=== PATIENT | female | born 1980 | race Asian ===

== ENCOUNTER 2024-01-09 19:42 | Emergency (ER) | payer MEDICAID, SELFPAY ==
[2024-01-09 19:42] VITALS: BMI 38.3
[2024-01-09 19:49] VITALS: BP 133/94
[2024-01-09 20:18] LABS: % Basophils 0.8 % (0-2); % Eosinophils 2.9 % (0-6); % Immature Granulocytes 0.3 % (0-0.5); % Monocytes 7.5 % (1.7-9.3); % Neutrophils 42.5 % (42.2-75.2); Absolute Basophils 0.1 10^3/uL (0-0.2); Absolute Eosinophils 0.2 10^3/uL (0-0.7); Absolute Lymphocytes 3.4 10^3/uL (1.2-3.4); Absolute Monocytes 0.6 10^3/uL (0.1-0.6); Absolute Neutrophils 3.1 10^3/uL (1.4-6.5); Hemoglobin 13.4 g/dL (12.0-16.0); Mean Corp Hgb Conc. 31.9 g/dL (33.0-37.0); Mean Corpuscular Hgb 26.5 pg (27.0-31.0); Mean Platelet Volume 11.8 fL (7.4-10.4); Nucleated Red Blood Cells % 0 %; Platelet Count 226 10^3/uL (130-400); Red Blood Cell Count 5.06 10^6/uL (4.20-5.40); Red Cell Dist. Width 13.5 % (11.5-14.5); White Blood Cell Count 7.3 10^3/uL (4.8-10.8)
[2024-01-09 20:32] LABS: ALT (SGPT) 66 U/L (0-35); AST (SGOT) 44 U/L (14-36); Albumin 4.3 g/dl (3.5-5.0); Alkaline Phosphatase 59 U/L (38-126); Blood Urea Nitrogen 10 mg/dl (7-17); Calcium 9.5 mg/dl (8.4-10.2); Carbon Dioxide 25 mmol/L (22-30); Chloride 103 mmol/L (98-107); Glucose 90 mg/dl (70-99); Potassium 4.1 mmol/L (3.5-5.1); Sodium 141 mmol/L (135-145); Total Bilirubin 0.4 mg/dl (0.2-1.3); Total Protein 7.1 g/dl (6.3-8.2); eGFR > 60.00
[2024-01-09 20:35] LABS: HCG, Serum Qualitative Screen Negative
[2024-01-09 20:54] LABS: Troponin I < 0.012 ng/ml
[2024-01-09 21:54] VITALS: BP 124/96
--- NOTE | 2024-01-09 22:20 | ED.GENMED ---
History of Present Illness
General
Chief Complaint: Blood Pressure Problem
Source: patient
Time Seen by Provider: 01/09/24 22:13
History of Present Illness
History of Present Illness:
43-year-old female with no significant past medical history presenting to the emergency department for evaluation of intermittently elevated blood pressures at home noting she has had intermittent symptoms of headache, chest discomfort, flank pain,
body aches, fatigue and left arm pain. Patient states presently she is asymptomatic. She did not take anything for her blood pressure. She notes that she does have a primary care provider but has yet to see them for this issue. Denies any fevers
or infectious symptoms. Denies any cigarette or tobacco history. No other concerns presently.
Past History
Past History
ED Past Medical History: None
ED Past Surgical History: Cholecystectomy and
Social History
Tobacco: Non-smoker
Alcohol: None
Drug: None
Personal:
Living: with family
Review of Systems
Review of Systems
All Other Systems: ROS reviewed and negative except as documented in HPI and ROS
Phy Exam
Physical Exam
Physical Exam:
GENERAL: Alert , in no apparent distress
EYE: clear conjunctiva b/l
HEAD: NCAT
ENT: mmm.
CARDIAC: Regular rate and rhythm .
LUNGS: Clear breath sounds bilaterally, no acute respiratory distress, no wheezes/rales/rhonchi
ABDOMEN: Soft, without focal tenderness, no r/g, no cvat
NEUROLOGICAL: Alert and oriented
SKIN: Warm and dry, skin intact.
MUSCULOSKELETAL: No edema, well perfused.
PSYCH: Normal and appropriate interaction.
Scores
Heart Failure Risk
Heart Failure Risk Score: Not Applicable
Heart Score for Chest Pain Patients
STEMI patient?: Not applicable
Withdrawal Assessment of Alcohol
Withdrawal Assessment Completed?: Not applicable
Course
Orders/Labs/Results
Orders:
Orders
01/09/24 19:52
Electrocardiogram (*1) Urgent
Reason for Study: Chest Pain
EKG- Treatment ONCE
Test Result ONCE
01/09/24 20:04
Complete Blood Count/With Diff Urgent
Comprehensive Metabolic Panel Urgent
HCG, Serum Qualitative Screen Urgent
Troponin I Urgent
Abnormal Lab Results
01/09/24
20:04
MCH 26.5 L pg
(27.0-31.0)
MCHC 31.9 L g/dL
(33.0-37.0)
MPV 11.8 H fL
(7.4-10.4)
AST 44 H U/L
(14-36)
ALT 66 H U/L
(0-35)
01/09/24 20:04
01/09/24 20:04
Vital Signs
Initial and Last Documented VS:
Initial Vital Signs
Temp Pulse Resp BP Pulse Ox
98.2 F 85 18 133/94 99
01/09/24 19:49 01/09/24 19:49 01/09/24 19:49 01/09/24 19:49 01/09/24 19:49
Last Documented Vital Signs
Temp Pulse Resp BP Pulse Ox
98.2 F 85 18 124/96 99
01/09/24 19:49 01/09/24 19:49 01/09/24 19:49 01/09/24 21:54 01/09/24 22:10
MDM/Problems Addressed
Differential Diagnosis Includes:
Asymptomatic hypertension, hypertensive urgency, I do not have concern for any intracranial pathology or ACS
MDM/Problems Addressed:
43-year-old female presenting to the emergency department for evaluation of intermittent elevated blood pressures at home. On arrival to the emergency department here patient did have a slightly elevated systolic but on multiple recheck her blood
pressure is significantly improved around 120/80. Patient is asymptomatic presently. Labs are largely unremarkable other than mildly elevated liver function tests. Patient has a nonischemic EKG. Discussed monitoring blood pressure at home as
well as some dietary modifications. Patient will follow-up with her primary care provider in 1 to 2 weeks to have her blood pressure rechecked. Aware of return precautions to the ER.
*Pulse Oximetry
Patient hypoxic: no
*EKG
Heart Rate: 78
Rate: normal
Rhythm: sinus
[place]: normal axis
Ischemia: no ischemia
*Operator/Assistant Foreman Interpretation
Rate: normal
Rhythm: sinus
*Critical Care Note
Total Time (30-74mins, 75-104mins- exclusive of procedures): Not Applicable
ED Attending Note
-
Portions of this chart may have been created with voice recognition software.� Occasional wrong word or��sound alike� substitutions may have occurred due to the inherent limitations of voice recognition software.
Discharge Plan
Departure
Patient Disposition: Home (Routine Discharge)
Date of Disposition: 01/09/24
Time of Disposition: 22:20
Patient with high blood pressure during this ER visit?: No
Discharge Problem:
Elevated blood pressure reading
Instructions: High Blood Pressure (DC)
Interventions
Interventions:
*Risk Screen - Suicide Last Done: 01/09/24 19:49
*General Assessment Last Done: 01/09/24 19:49
*Neglect/Abuse Screening Last Done: 01/09/24 19:49
ED- Fall Risk Assessment Last Done: 01/09/24 22:12
*ED COVID-19 Vaccine History Last Done: 01/09/24 22:10
ED- Cardiac Assessment Last Done: 01/09/24 22:10
ED- Neurological Assessment Last Done: 01/09/24 22:10
ED- Pulmonary Assessment Last Done: 01/09/24 22:10
Discharge Date and Time
Print Language: URDU
== END 2024-01-09 22:58 | disposition home or self-care (01) ==
LOC: EMR 19:42
PROVIDERS: Student in an Organized Health Care Education/Training Program; EMERGENCY PHYSICIAN Student in an Organized Health Care Education/Training Program
DX: R03.0 Elevated blood-pressure reading, without diagnosis of hypertension (principal); Z90.49 Acquired absence of other specified parts of digestive tract
CPT/HCPCS: 99284; 80053; 84484; 84703; 85025; 93005

== ENCOUNTER 2024-05-07 11:16 | Emergency (ER) | payer MEDICAID, SELFPAY ==
[2024-05-07 11:27] VITALS: BP 133/95
[2024-05-07 12:11] LABS: COVID-19 Antigen Negative (Negative)
--- NOTE | 2024-05-07 12:14 | ED.GENMED ---
History of Present Illness
General
Chief Complaint: Cold/Flu/URI Symptoms
Time Seen by Provider: 05/07/24 11:59
History of Present Illness
History of Present Illness:
TIME OF INITIAL ENCOUNTER: 11:45 AM
HPI: The patient presents with 2 days of cough and congestion.Her son has similar symptoms and is found to be influenza positive. Her son continues to have fever. This patient has some chest discomfort associated with cough.
EXAM:
GENERAL: Well appearing in no distress
HEENT: Moist oral mucosa
CARDIOVASCULAR: No murmurs, borderline tachycardic heart rate, regular rhythm, No chest wall tenderness
PULMONARY: No respiratory distress, breath sounds are clear and equal
ABDOMEN: Soft with no peritoneal signs, no tenderness
NEUROLOGIC: Excellent strength all extremities, no coordination deficits
PSYCHIATRIC: Appropriate mental status, normal insight and judgement
EXTREMITIES: Nontender, no edema, moves all extremities equally
SKIN: No rash, no lesions
NUMBER AND COMPLEXITY OF PROBLEMS ADDRESSED AT THE ENCOUNTER
� Chronic conditions affecting care: No significant past medical history
� Acute Exacerbation and/or Progression of Chronic Illness: This is an acute problem
� Differential Diagnosis includes: Viral syndrome, based on physical examination, doubt pneumonia
AMOUNT AND/OR COMPLEXITY OF DATA TO BE REVIEWED AND ANALYZED
� I performed an independent evaluation of and my interpretation is:
EKG:
CT:
X-rays:
Laboratory Studies: COVID and flu testing negative
Other:
� Review of other/old records: The patient was seen here in December related to high blood pressure readings and at that time basic blood work was unremarkable
� Clinical information was obtained by an independent historian: I spoke to at bedside
� Prescriptions/Medications Considered but not given:
� Further testing considered but not performed: Considered x-ray however the patient's lungs are perfectly clear
RISK OF COMPLICATIONS AND/OR MORBIDITY OR MORTALITY OF PATIENT MANAGEMENT
� Social determinants of health affecting care: Lives at home
� Discussion with other providers:
� Escalation of care including admission/observation vs risk of discharge considered: Son has similar symptoms and is found to be flu positive. Despite negative testing, I suspect that this patient has the flu. Although she is
tachycardic, she appears to be well-hydrated. She denies fevers. Will start Tamiflu.
ANY OTHER UPDATES:
Past History
Past History
ED Past Medical History: None
ED Past Surgical History: Cholecystectomy and
Social History
Tobacco: Non-smoker
Alcohol: None
Drug: None
Personal:
Living: with family
Phy Exam
Physical Exam
Physical Exam:
See HPI
Course
Orders/Labs/Results
Orders:
Orders
05/07/24 11:32
COVID-19 Antigen Urgent
Source: Nasal Swab
Influenza A+B Rapid Molecular Urgent
CORDELL Source: Nasal Swab
Specimen Description:
05/07/24 12:07
Ibuprofen [Motrin] 800 mg PO NOW STA
Vital Signs
Initial and Last Documented VS:
Initial Vital Signs
Temp Pulse Resp BP Pulse Ox
37.3 C 123 20 133/95 98
05/07/24 11:27 05/07/24 11:27 05/07/24 11:27 05/07/24 11:27 05/07/24 11:27
Last Documented Vital Signs
Temp Pulse Resp BP Pulse Ox
37.3 C 123 20 133/95 98
05/07/24 11:27 05/07/24 11:27 05/07/24 11:27 05/07/24 11:27 05/07/24 11:27
*Critical Care Note
Total Time (30-74mins, 75-104mins- exclusive of procedures): Not Applicable
ED Attending Note
-
Portions of this chart may have been created with voice recognition software.� Occasional wrong word or��sound alike� substitutions may have occurred due to the inherent limitations of voice recognition software.
Discharge Plan
Departure
Patient Disposition: Home (Routine Discharge)
Date of Disposition: 05/07/24
Time of Disposition: 12:12
Patient with high blood pressure during this ER visit?: Yes
Discharge Problem:
Acute viral syndrome
Instructions: Viral Syndrome (DC), BLOOD PRESSURE
Prescriptions:
New
oseltamivir [Tamiflu] 75 mg capsule
75 mg PO BID Qty: 10 0RF
Activity Restrictions/Additional Instructions:
Your influenza and COVID test came back negative however since your son is positive for influenza, it is still possible you have influenza as well. I did send a prescription for Tamiflu to your pharmacy.
Interventions
Interventions:
*Risk Screen - Suicide Last Done: 05/07/24 11:27
*General Assessment Last Done: 05/07/24 11:27
*Neglect/Abuse Screening Last Done: 05/07/24 11:27
Discharge Date and Time
Print Language: MOHAWK
[2024-05-07] MEDS: MOTRIN 800 MG PO (12:39)
== END 2024-05-07 12:50 | disposition home or self-care (01) ==
LOC: EMR 11:16
PROVIDERS: EMERGENCY PHYSICIAN Emergency Medicine
DX: B34.9 Viral infection, unspecified (principal); R03.0 Elevated blood-pressure reading, without diagnosis of hypertension; Z11.52 Encounter for screening for COVID-19
CPT/HCPCS: 99283; 87502; 87811

== ENCOUNTER 2024-11-10 15:20 | Emergency (ER) | payer MEDICAID, SELFPAY ==
[2024-11-10 15:23] VITALS: BP 140/96
[2024-11-10 16:17] VITALS: BP 129/90
[2024-11-10 16:32] LABS: Hematocrit 44.2 % (37.0-47.0); Hemoglobin 14.2 g/dL (12.0-16.0); Mean Corp Hgb Conc. 32.1 g/dL (33.0-37.0); Mean Corpuscular Volume 81.1 fL (81.0-99.0); Nucleated Red Blood Cells % 0 %; Platelet Count 249 10^3/uL (130-400); Red Cell Dist. Width 13.3 % (11.5-14.5)
--- NOTE | 2024-11-10 16:32 | ED.GENMED ---
History of Present Illness
General
Chief Complaint: Heart Rate Problem
Source: patient
Exam Limitations: none
Time Seen by Provider: 11/10/24 16:06
Nursing documentation reviewed up to this point in time: agreed with
History of Present Illness
History of Present Illness:
Patient is a 44-year-old female presents to the ER for evaluation. Patient minimally takes her blood pressure and on night 3 days ago took her blood pressure and it was elevated. It was around 140s over 90s. She also noticed that she has
had a headache since then. She complains of pain in the back of her head and she is nauseous with this. She also feels fatigued. She does report she is upset because her son went to college and moved to [place] recently and that has been upsetting
her. She does not have a history of headaches. She denies any trauma fever chills. She denies any neck pain dizziness blurry vision. Denies any trauma chiropractor manipulation. She is not on blood thinners. She is brought to the ER by son who
is also assisting with history. Son reports patient's heart rate was elevated in the low 100s prior to arrival as well. Patient denies any chest pain shortness of breath. Denies any recent cough fever chills URI symptoms.
Past History
Past History
ED Past Medical History: None
ED Past Surgical History: Cholecystectomy and
Social History
Tobacco: Non-smoker
Alcohol: None
Drug: None
Personal:
Living: with family
Phy Exam
General Physical Exam
General Presentation: no apparent distress
General age: appears stated age
General Skin: warm and dry
General Habitus: normal
General Mental: alert
General Hydration: appears well hydrated
ENT Exam
ENT Exam: EOMI and TM's normal
Eye Exam
Eye Exam: PERRL and EOMI
Eye Exam General: PERRL: bilateral and EOM intact: bilateral
Pupil Exam: Bilateral: round and reactive
Cardiovascular Exam
Cardiovascular Exam: regular rate/rhythm, no murmur and normal peripheral pulses
Neurological Exam
Neurological Exam: alert and oriented x3
Musculoskeletal Exam
Musculoskeletal Exam: full ROM
Skin Exam
Skin Exam: normal color and warm/dry
Psychiatric Exam
Psychiatric Exam: normal mood/affect
Course
Orders/Labs/Results
Orders:
Orders
11/10/24 15:27
Electrocardiogram (*1) Urgent
Reason for Study: Tachycardia
EKG- Treatment ONCE
11/10/24 15:29
Test Result ONCE
11/10/24 16:15
Complete Blood Count/With Diff Urgent
Comprehensive Metabolic Panel Urgent
HCG, Serum Qualitative Screen Urgent
11/10/24 16:29
CT Head W/o Iv Contrast Urgent
Comment:
Reason For Exam: headache nausea/elevated bp
11/10/24 16:31
Diphenhydramine [Benadryl] 25 mg IV NOW STA
Metoclopramide [Reglan] 10 mg IV NOW STA
11/10/24 16:32
0.9% Sodium Chloride 1000 ml [Nss] 1,000 ml IV BOLUS
11/10/24 19:27
Ketorolac [Toradol] 15 mg IV NOW STA
Abnormal Lab Results
11/10/24
16:15
RBC 5.45 H 10^6/uL
(4.20-5.40)
MCH 26.1 L pg
(27.0-31.0)
MCHC 32.1 L g/dL
(33.0-37.0)
MPV 10.7 H fL
(7.4-10.4)
BUN 6 L mg/dl
(7-17)
Glucose 105 H mg/dl
(70-99)
08/24/25 16:15
11/10/24 16:15
Vital Signs
Initial and Last Documented VS:
Initial Vital Signs
Temp Pulse Resp BP Pulse Ox
98.2 F 105 18 140/96 97
11/10/24 15:23 11/10/24 15:23 11/10/24 15:23 11/10/24 15:23 11/10/24 15:23
Last Documented Vital Signs
Temp Pulse Resp BP Pulse Ox
98.2 F 101 13 148/95 98
11/10/24 15:23 11/10/24 17:58 11/10/24 17:45 11/10/24 19:57 11/10/24 19:58
MDM/Problems Addressed
Differential Diagnosis Includes:
Not limited to headache, hypertension
MDM/Problems Addressed:
Patient is documented 44-year-old female who has had a headache for the past several days. She does not have a history of high blood pressure however trigger blood pressure has also been elevated. She denies any blurred vision chest pain shortness
of breath. Son noticed her heart rate was mildly elevated. She however denies any shortness of breath here in the ER denies any dizziness lightheadedness. She is awake alert no acute distress no recent fever chills no meningismus. No
neurological deficits. Labs unremarkable CAT scan unremarkable. Patient was given fluids Reglan Benadryl Toradol feeling much better. She does not have a PCP will DC with family practice clinic follow-up
*Radiology
Radiology exam reviewed: radiology read reviewed
*Pulse Oximetry
SaO2: 97
Oxygen Mode of Delivery: Room air
Patient hypoxic: no
*EKG
Interpreted by ED Provider?: Yes
Heart Rate: 88
Rate: normal
Rhythm: sinus
Ischemia: no ischemia
*Critical Care Note
Total Time (30-74mins, 75-104mins- exclusive of procedures): Not Applicable
ED Attending Note
-
Portions of this chart may have been created with voice recognition software.� Occasional wrong word or��sound alike� substitutions may have occurred due to the inherent limitations of voice recognition software.
Discharge Plan
Departure
Patient Disposition: Home (Routine Discharge)
Date of Disposition: 11/10/24
Time of Disposition: 20:17
Patient with high blood pressure during this ER visit?: Yes
Condition: Fair
Covid-19: Not Applicable
Discharge Problem:
Headache, elevated blood pressure
Instructions: Headache in adults - ED (DC), BLOOD PRESSURE
Prescriptions:
No Action
oseltamivir [Tamiflu] 75 mg capsule
75 mg PO BID Qty: 10 0RF
Referrals:
[facility] [Provider Group]
[facility] [Outside]
NONE,* [Family Provider, Internal Medicine]
Activity Restrictions/Additional Instructions:
As discussed, follow-up with family practice clinic in the next 2 days .
call tomorrow to make an appointment. You may take Tylenol for headaches. Stay well-hydrated. Return if any worsening of symptoms
Interventions
Interventions:
*Risk Screen - Suicide Last Done: 11/10/24 15:23
*General Assessment Last Done: 11/10/24 15:23
*Neglect/Abuse Screening Last Done: 11/10/24 15:23
*ED- Fall Risk Assessment Last Done: 11/10/24 18:08
*ED COVID-19 Vaccine History Last Done: 11/10/24 18:08
ED- Cardiac Assessment Last Done: 11/10/24 17:11
ED- Pulmonary Assessment Last Done: 11/10/24 17:11
Discharge Date and Time
Print Language: GREEK
[2024-11-10 16:41] LABS: HCG, Serum Qualitative Screen Negative
[2024-11-10 16:48] LABS: ALT (SGPT) 32 U/L (0-35); AST (SGOT) 24 U/L (14-36); Albumin 4.5 g/dl (3.5-5.0); Alkaline Phosphatase 49 U/L (38-126); Blood Urea Nitrogen 6 mg/dl (7-17); Calcium 9.4 mg/dl (8.4-10.2); Carbon Dioxide 26 mmol/L (22-30); Chloride 107 mmol/L (98-107); Glucose 105 mg/dl (70-99); Potassium 4.2 mmol/L (3.5-5.1); Sodium 138 mmol/L (135-145); Total Protein 7.2 g/dl (6.3-8.2); eGFR > 60.00
[2024-11-10] MEDS: REGLAN 10 MG IV (16:58)
[2024-11-10] MEDS: BENADRYL 25 MG IV (16:59)
[2024-11-10] MEDS: NSS 1000 IV (16:59)
[2024-11-10 19:57] VITALS: BP 148/95
[2024-11-10] MEDS: TORADOL 15 MG IV (19:58)
== END 2024-11-10 20:47 | disposition home or self-care (01) ==
LOC: EMR 15:20
PROVIDERS: EMERGENCY PHYSICIAN Emergency Medicine
DX: R03.0 Elevated blood-pressure reading, without diagnosis of hypertension (principal); Z63.8 Other specified problems related to primary support group
CPT/HCPCS: 99284; 96374; 96375 ×2; 96361; 70450; 80053; 84703; 85025; 93005

== ENCOUNTER 2025-01-28 18:32 | Emergency (ER) | payer MEDICAID, SELFPAY ==
[2025-01-28 18:40] VITALS: BP 152/91
[2025-01-28 19:17] VITALS: BP 131/86
[2025-01-28 19:34] LABS: Hematocrit 40.0 % (37.0-47.0); Hemoglobin 13.0 g/dL (12.0-16.0); Mean Corp Hgb Conc. 32.5 g/dL (33.0-37.0); Mean Corpuscular Volume 81.3 fL (81.0-99.0); Nucleated Red Blood Cells % 0 %; Platelet Count 223 10^3/uL (130-400); Red Cell Dist. Width 13.6 % (11.5-14.5)
[2025-01-28 19:57] LABS: ALT (SGPT) 29 U/L (0-35); AST (SGOT) 26 U/L (14-36); Albumin 4.4 g/dl (3.5-5.0); Alkaline Phosphatase 63 U/L (38-126); Blood Urea Nitrogen 10 mg/dl (7-17); Calcium 9.2 mg/dl (8.4-10.2); Carbon Dioxide 29 mmol/L (22-30); Chloride 103 mmol/L (98-107); Glucose 85 mg/dl (70-99); Potassium 3.7 mmol/L (3.5-5.1); Sodium 138 mmol/L (135-145); Total Protein 7.1 g/dl (6.3-8.2); eGFR > 60.00
--- NOTE | 2025-01-28 20:05 | ED.GENMED ---
History of Present Illness
General
Chief Complaint: Chest Pain
Source: patient
Exam Limitations: none
Time Seen by Provider: 01/28/25 19:35
Nursing documentation reviewed up to this point in time: agreed with
History of Present Illness
History of Present Illness:
45-year-old female sharp left-sided chest pain for 4 to 5 days she believes it started after doing some cleaning unsure what meds she has been taking for pain, she has carpal tunnel and hypertension unsure of her meds, nondrinker non-smoker no calf
pain no history of DVT PE no history of CAD no fevers no cough has pain both with rest and with movement
Past History
Past History
ED Past Medical History: HTN and Other (Carpal tunnel)
ED Past Surgical History: Cholecystectomy and
Social History
Tobacco: Non-smoker
Alcohol: None
Drug: None
Personal:
Living: with family
Employment: Employed
Review of Systems
Review of Systems
All Other Systems: Not applicable
Constitutional: Denies fever
Respiratory: Reports trouble breathing
Cardiac: Reports chest pain
Musculoskeletal: Reports no symptoms
Skin: Reports no symptoms
Neurological: Reports no symptoms
Hematologic/Lymphatic: Reports no symptoms
Psychiatric: Reports no symptoms
Phy Exam
Physical Exam
Physical Exam:
Physical Exam
General: no apparent distress, not acutely ill
Neck: No jaundice no stridor
Heart: Regular
Lungs: no acute respiratory distress. clear bilaterally reproducible left anterior chest wall pain lateral to the
Abdomen: Nontender
Neuro: alert and oriented. no focal neurological deficits
Skin: no rash
Psychiatric: well kept. interactive and cooperative
Extremities: no edema. no calf tenderness.
Scores
Heart Score for Chest Pain Patients
STEMI patient?: No
History: Slightly or Non-Suspicious
ECG: Normal
Age: >45 - <65 years
Risk Factors: 1 or 2 Risk Factors
Troponin: </= Normal Limit
Heart Score for Chest Pain Patients: 2
Heart Score Risk: 2.5% MACE over next 6 weeks
Course
Orders/Labs/Results
Orders:
Orders
01/28/25 18:46
EKG [Electrocardiogram (*1)] Urgent
Reason for Study: Chest Pain
EKG- Treatment ONCE
01/28/25 19:26
Complete Blood Count/With Diff Urgent
Comprehensive Metabolic Panel Urgent
HCG, Serum Qualitative Screen Urgent
Troponin I Urgent
01/28/25 19:27
CR Chest - 2 Views Urgent
Comment:
Reason For Exam: cp
01/28/25 20:03
Ketorolac [Toradol] 30 mg IV NOW STA
01/28/25 20:04
Add On- LAB Urgent
Tests Added?: hcg qualitative
01/28/25 20:07
D-Dimer Urgent
01/28/25 20:49
CT Chest PE Study Urgent
Comment:
Reason For Exam: cp ddimer up
Abnormal Lab Results
01/28/25 01/28/25
19:26 20:07
MCH 26.4 L pg
(27.0-31.0)
MCHC 32.5 L g/dL
(33.0-37.0)
MPV 11.1 H fL
(7.4-10.4)
D-Dimer 0.86 H ug/mlFEU
(0.00-0.50)
01/28/25 19:26
01/28/25 19:26
Vital Signs
Initial and Last Documented VS:
Initial Vital Signs
Temp Pulse Resp BP Pulse Ox
98.1 F 75 18 152/91 97
01/28/25 18:40 01/28/25 18:40 01/28/25 18:40 01/28/25 18:40 01/28/25 18:40
Last Documented Vital Signs
Temp Pulse Resp BP Pulse Ox
98.1 F 73 18 131/86 99
01/28/25 18:40 01/28/25 20:45 01/28/25 20:45 01/28/25 19:17 01/28/25 20:45
MDM/Problems Addressed
Differential Diagnosis Includes:
Muscle strain costochondritis pneumothorax doubt ACS conceivably PE
MDM/Problems Addressed:
Chest pain
Chronic conditions affecting care: HTN
Acute Exacerbation and/or Progression of Chronic Illness: HTN
*Radiology
Radiology exam reviewed: preliminary read by ED provider (No pneumothorax)
*Pulse Oximetry
SaO2: 98
Oxygen Mode of Delivery: Room air
Patient hypoxic: no
*EKG
Interpreted by ED Provider?: Yes
Interpretation: normal
Comparison EKG: no comparison EKG present
Heart Rate: 78
Rate: normal
Rhythm: sinus
Ischemia: no ischemia
*Clerk Typist Interpretation
Rate: normal
Interpretation: normal
Heart Rate: 78
Rhythm: sinus
*Critical Care Note
Total Time (30-74mins, 75-104mins- exclusive of procedures): Not Applicable
Update Note
Update Note:
Update, D-dimer noted troponin noted chest x-ray noted chest CT noted
ED Attending Note
-
Portions of this chart may have been created with voice recognition software.� Occasional wrong word or��sound alike� substitutions may have occurred due to the inherent limitations of voice recognition software.
Discharge Plan
Departure
Patient Disposition: Home (Routine Discharge)
Date of Disposition: 01/28/25
Time of Disposition: 21:41
Patient with high blood pressure during this ER visit?: No
Condition: Good
Discharge Problem:
Acute chest wall pain
Instructions: Costochondritis (DC)
Prescriptions:
New
ibuprofen 600 mg tablet
600 mg PO Q8H PRN (Reason: Pain) Qty: 20 0RF
No Action
oseltamivir [Tamiflu] 75 mg capsule
75 mg PO BID Qty: 10 0RF
Referrals:
NONE,* [Family Provider, Internal Medicine]
Activity Restrictions/Additional Instructions:
Follow-up with your primary care provider
Interventions
Interventions:
*Risk Screen - Suicide Last Done: 01/28/25 18:40
*ED COVID-19 Vaccine History Last Done: 01/28/25 18:40
*ED Influenza Vaccine History Last Done: 01/28/25 18:40
ED- Cardiac Assessment Last Done: 01/28/25 19:30
Discharge Date and Time
Print Language: GIBRALTARIAN
[2025-01-28 20:07] LABS: Troponin I < 0.012 ng/ml
[2025-01-28] MEDS: TORADOL 30 MG IV (20:08)
[2025-01-28 20:23] LABS: HCG, Serum Qualitative Screen Negative
[2025-01-28 20:35] LABS: D-Dimer 0.86 ug/mlFEU (0.00-0.50)
== END 2025-01-28 22:21 | disposition home or self-care (01) ==
LOC: EMR 18:32
PROVIDERS: EMERGENCY PHYSICIAN Emergency Medicine
DX: R07.89 Other chest pain (principal); I10 Essential (primary) hypertension
CPT/HCPCS: 99284; 96374; 71046; 71275; 80053; 84484; 84703; 85025; 85379; 93005; Q9967